=== PATIENT | male | born 1995 | race Caucasian/White ===

== ENCOUNTER 2019-04-25 14:17 | Emergency (ER) | payer MEDICAID ==
[~2019-04-25] VITALS: Ht 165.1 cm; Wt 54.5 kg
[2019-04-25 14:32] VITALS: BP 131/76
[2019-04-25] MEDS ORDERED: LACT10SO PO (15:04)
== END 2019-04-25 15:19 | disposition home or self-care (01) ==
LOC: ER 14:17
DX: K59.00 Constipation, unspecified (principal); F17.200 Nicotine dependence, unspecified, uncomplicated; F15.90 Other stimulant use, unspecified, uncomplicated; F10.99 Alcohol use, unspecified with unspecified alcohol-induced disorder; Z79.899 Other long term (current) drug therapy; Z59.0 Homelessness; Y90.9 Presence of alcohol in blood, level not specified
CPT/HCPCS: 99283

== ENCOUNTER 2019-04-27 10:06 | Emergency (ER) | payer MEDICAID ==
[~2019-04-27] VITALS: Ht 165.1 cm; Wt 54.5 kg
[~2019-04-27 10:06] MED LIST: LACT10SO PO
[2019-04-27] MEDS ORDERED: cephalexin 250mg capsule PO ONE (12:00)
[2019-04-27] MEDS ORDERED: sulfamethoxazole/trimethoprim DS (800/160mg) tablet PO ONE (12:00)
[2019-04-27] MEDS ORDERED: CEPH500C5 PO (12:06)
[2019-04-27] MEDS ORDERED: SULF1TAB49 PO (12:06)
[2019-04-27 12:07] VITALS: BP 119/72
== END 2019-04-27 12:09 | disposition home or self-care (01) ==
LOC: ER 10:07
DX: L03.032 Cellulitis of left toe (principal); F15.90 Other stimulant use, unspecified, uncomplicated; Z79.899 Other long term (current) drug therapy; Z79.2 Long term (current) use of antibiotics
CPT/HCPCS: 99283

== ENCOUNTER 2019-07-19 11:46 | Emergency (ER) | payer MEDICAID ==
[~2019-07-19] VITALS: Ht 162.6 cm; Wt 54.5 kg
[2019-07-19 12:13] VITALS: BP 124/68
== END 2019-07-19 13:55 | disposition home or self-care (01) ==
LOC: ER 11:46
DX: T25.021A Burn of unspecified degree of right foot, initial encounter (principal); F15.90 Other stimulant use, unspecified, uncomplicated; Z59.0 Homelessness; X58.XXXA Exposure to other specified factors, initial encounter; Y93.89 Activity, other specified; Y92.89 Other specified places as the place of occurrence of the external cause; Y99.9 Unspecified external cause status
CPT/HCPCS: 99283

== ENCOUNTER 2019-09-24 16:27 | Emergency (ER) | payer MEDICAID ==
[~2019-09-24] VITALS: Ht 162.6 cm; Wt 54.0 kg
--- NOTE | 2019-09-24 17:22 | NUR ---
Pt was brought in by RN. I took pt to bed 24 and had him get changed into green scrubs. Pt refused to remove underwear. I notified RNShani she stated that "its okay for now". Pt did not want to put his skirt on and had to be asked multiple times.
[2019-09-24] MEDS ORDERED: NO HOME MEDS (17:47)
--- NOTE | 2019-09-24 17:49 | NUR ---
Received pt from triage. Pt covered up under sheets and resistive to uncover his head. Pt c/o bilateral feet tingling and like needles. Toes are reddened and balls of feet are white like sitting in water for a long time. Pt also c/o stomach feeling like there is a big worm in there moving around and rated abd. pain 10/10. Friend with him thought he may just be hungry. Friend reported she found him asleep this morning in the driveway of her home. Pt stated he had been using meth and went over there to smoke pot with his friends and fell asleep outside. Pt homeless and states he sleeps, "around". Pt denies s.i./h.i. and denies a/v hallucinations at this time.
[2019-09-24] MEDS: clotrimazole topical cream 15gm tube TP SCH ×3 (17:50→20:47)
--- NOTE | 2019-09-24 18:08 | NUR ---
Friend phone number: Alfreda Shelly [phone]
[2019-09-24 18:48] LABS: BASOPHILS % (AUTO) 0.5 % (0-1); EOSINOPHILS # (AUTO) 0.2 X10'3 (0-0.9); EOSINOPHILS % (AUTO) 2.4 % (0-6); HEMATOCRIT 40.7 % (42.0-52.0); HEMOGLOBIN 13.9 g/dl (14.0-17.9); LYMPHOCYTES # (AUTO) 2.3 X10'3 (1.1-4.8); LYMPHOCYTES % (AUTO) 22.7 % (21-51); MEAN CORPUSCULAR HEMOGLOBIN 29.7 PG (27.0-31.0); MEAN CORPUSCULAR HGB CONC 34.3 g/dL (33.0-36.5); MEAN CORPUSCULAR VOLUME 86.8 FL (78-98); MEAN PLATELET VOLUME 6.9 FL (7.4-10.4); MONOCYTES # (AUTO) 0.7 X10'3 (0-0.9); MONOCYTES % (AUTO) 7.3 % (2-12); NEUTROPHILS # (AUTO) 6.9 X10'3 (1.8-7.7); NEUTROPHILS % (AUTO) 67.1 % (42-75); PLATELET COUNT 369 X10'3 (140-440); RED BLOOD COUNT 4.69 X10'6 (4.70-6.10); WHITE BLOOD COUNT 10.2 X10'3 (4.5-11.0)
--- NOTE | 2019-09-24 18:51 | NUR ---
This patient is laying on his side. He is awake and well oriented. The patient has not eaten a meal as of yet, we are awaiting a tray/meal. The patient tells this customs entry writer he is feeling ok except tor "pins and needles in his toes." The patient denies S/I or H/I. He denies hallucinations. The patient states he was laying out in the rain because he had no place to stay. The patient states he has had no suicidal or psychiatric history. The patient states he cannot stay at the [facility] as "they don't like me there." This patient is assured that he is in a safe place. Patient is in view from the nursing station.
[2019-09-24 19:31] LABS: CLARITY,URINE CLEAR (Clear); COLOR,URINE YELLOW (Yellow); GLUCOSE, URINE NEGATIVE (Neg); KETONES,URINE 15 mg/dl (Neg); LEUKOCYTE ESTERASE ,URINE NEGATIVE (Neg); NITRITES, URINE NEGATIVE (Neg); OCCULT BLOOD,URINE NEGATIVE (Neg); PH,URINE 6.5 (4.8-8.0); PROTEIN,URINE NEGATIVE (Neg)
[2019-09-24 19:35] LABS: ALANINE AMINOTRANSFERASE 28 U/L (12-78); ALBUMIN 4.2 G/DL (3.4-5.0); ALBUMIN/GLOBULIN RATIO 1.2 (1.1-1.5); ALKALINE PHOSPHATASE 99 IU/L (46-116); ANION GAP 8 (8-16); ASPARTATE AMINO TRANSFERASE 19 U/L (10-37); BILIRUBIN,TOTAL 0.4 MG/DL (0.1-1.0); BLOOD UREA NITROGEN 14 MG/DL (7-18); BUN/CREATININE RATIO 16.1 (5.4-32.0); CALCIUM 9.1 MG/DL (8.5-10.1); CHLORIDE 104 MMOL/L (99-107); CREATININE 0.87 MG/DL (0.60-1.10); GLUCOSE 90 MG/DL (70-104); POTASSIUM 3.8 MMOL/L (3.5-5.1); SODIUM 139 MMOL/L (135-145); TOTAL CARBON DIOXIDE 27.4 MMOL/L (24-32); TOTAL PROTEIN 7.7 G/DL (6.4-8.2); eGFR > 90 ML/MIN
[2019-09-24 19:43] LABS: ETHANOL < 0.010 GM/DL (0.0-0.010)
[2019-09-24 19:44] LABS: UA COLLECTION TYPE VOIDED
[2019-09-24 19:54] LABS: URINE AMPHETAMINE SCREEN POSITIVE (Neg); URINE BARBITUATE SCREEN NEGATIVE (Neg); URINE BENZODIAZEPINES SCREEN NEGATIVE (Neg); URINE CANNABINOID SCREEN POSITIVE (Neg); URINE COCAINE SCREEN NEGATIVE (Neg); URINE METHADONE SCREEN NEGATIVE (Neg); URINE OPIATE SCREEN NEGATIVE (Neg); URINE PHENCYCLIDINE SCREEN NEGATIVE (Neg)
[2019-09-24] MEDS ORDERED: ibuprofen tablet 400 MG TABLET PO ONE (20:50)
--- NOTE | 2019-09-24 20:54 | NUR ---
Patient given motrin for bilateral foot pain, feed are red in color, no blistering or breakdown noted. Patient states pain is a 5 on a zero to ten scale.
--- NOTE | 2019-09-24 21:25 | NUR ---
Patient sleeping quietly on his right side. In view from nursing station.
--- NOTE | 2019-09-24 23:47 | NUR ---
Patient sleeping low fowlers position, in view from nursing station.
--- NOTE | 2019-09-25 05:00 | NUR ---
Patient awake for vital signs. Patient is oriented but delusional. Patient states "I'm with a worm in my stomach." Patient also complains of tingling in feet, "It's like pins and needles." Patients toes and feet remain redish in color. Good bilateral dorsalis pedis pulses.
--- NOTE | 2019-09-25 05:23 | NUR ---
Patient sleeping with knees flexed. In view from nursing station.
[2019-09-25 05:30] VITALS: BP 113/40
--- NOTE | 2019-09-25 06:32 | NUR ---
pt resting quietly in bed.
[2019-09-25] MEDS: clotrimazole topical cream 15gm tube TP SCH (08:00)
--- NOTE | 2019-09-25 08:46 | NUR ---
pt sitting up in bed eating breakfast. Calm and coopertive. Requested to get cleaned up with AM. Stating pain in his feet. Refuses need for Lotrimin cream and requesting pain meds. Will notify MD as no pain meds currently ordered.
--- NOTE | 2019-09-25 09:20 | NUR ---
[facility] at bedside evaluating pt.
[2019-09-25] MEDS ORDERED: ibuprofen tablet 400 MG TABLET PO PRN (09:40)
[2019-09-25] MEDS ORDERED: ibuprofen 200mg tablet PO PRN (09:50)
--- NOTE | 2019-09-25 10:09 | NUR ---
pt got cleaned up this AM. Now sitting up in bed. Calm and cooperative.
--- NOTE | 2019-09-25 11:06 | NUR ---
pt discharged to the street. Advised to follow-up with his chief strategy officer on Friday to consult for housing. Pt calm and coopertive. Escorted to front of hospital by security.
== END 2019-09-25 11:10 | disposition home or self-care (01) ==
LOC: ER 16:28
DX: F32.9 Major depressive disorder, single episode, unspecified (principal); F10.99 Alcohol use, unspecified with unspecified alcohol-induced disorder; F15.90 Other stimulant use, unspecified, uncomplicated; Z59.0 Homelessness; Z79.899 Other long term (current) drug therapy; Y90.9 Presence of alcohol in blood, level not specified
CPT/HCPCS: 36415; 80053; 80305; 80320; 81003; 84443; 85025; 99284

== ENCOUNTER 2019-10-01 16:22 | Emergency (ER) | payer MEDICAID ==
[~2019-10-01] VITALS: Ht 165.1 cm; Wt 57.0 kg
[~2019-10-01 16:22] MED LIST changes: +NO HOME MEDS
[2019-10-01 16:29] VITALS: BP 150/73
[2019-10-01] MEDS ORDERED: IBUP-1984 PO (17:09)
== END 2019-10-01 17:25 | disposition home or self-care (01) ==
LOC: ER 16:23
DX: M79.674 Pain in right toe(s) (principal); M79.675 Pain in left toe(s); F15.90 Other stimulant use, unspecified, uncomplicated; Z59.0 Homelessness
CPT/HCPCS: 99282

== ENCOUNTER 2019-10-12 20:56 | Emergency (ER) | payer MEDICAID ==
[~2019-10-12] VITALS: Ht 162.6 cm; Wt 54.0 kg
[~2019-10-12 20:56] MED LIST changes: +IBUP-1984 PO
[2019-10-12 21:02] VITALS: BP 113/45
[2019-10-12] MEDS ORDERED: ondansetron 4mg rapidly disintigrating tab PO ONE (21:20)
[2019-10-12 22:47] LABS: CLARITY,URINE CLEAR (Clear); COLOR,URINE YELLOW (Yellow); GLUCOSE, URINE NEGATIVE (Neg); KETONES,URINE TRACE mg/dl (Neg); LEUKOCYTE ESTERASE ,URINE NEGATIVE (Neg); NITRITES, URINE NEGATIVE (Neg); OCCULT BLOOD,URINE NEGATIVE (Neg); PH,URINE 5.5 (4.8-8.0); PROTEIN,URINE TRACE mg/dl (Neg); UROBILINOGEN,URINE 0.2 E.U/dL (0.2-1.0)
[2019-10-12 22:52] LABS: UA COLLECTION TYPE CLN CATCH MIDSTREAM
[2019-10-12 22:53] LABS: BACTERIA,URINE FEW /HPF (Neg); RBC,URINE 0-2 /HPF (0-2); WBC,URINE 0-4 /HPF (0-4)
[2019-10-12 22:54] LABS: MUCUS STRANDS MANY /LPF (Neg); SQUAMOUS EPITHELIAL CELL,UR NONE SEEN /LPF (FEW)
== END 2019-10-12 22:52 | disposition home or self-care (01) ==
LOC: ER 20:56
DX: R10.9 Unspecified abdominal pain (principal); R11.0 Nausea; F15.90 Other stimulant use, unspecified, uncomplicated; F11.90 Opioid use, unspecified, uncomplicated
CPT/HCPCS: 81001; 99283